=== PATIENT | female | born 1990 | race African-American/Black ===

== ENCOUNTER 2017-01-13 08:23 | Emergency (ER) | payer OTHER ==
[~2017-01-13] VITALS: Ht 157.5 cm; Wt 68.0 kg
--- NOTE | ~2017-01-13 | EKG ---
PATIENT: ERIK KHAN UNIT #: [id number] Ventricular Rate: 81 BPM Atrial Rate: 81 BPM P-R Interval: 198 ms QRS Duration: 88 ms Q-T Interval: 372 ms QTC Calculation(Bezet): 432 ms P [place]: 49 degrees Calculated R [place]: 54 degrees Calculated T [place]: 38 degrees Diagnosis Line: Normal sinus rhythm Diagnosis Line: Nonspecific T wave abnormality Diagnosis Line: Abnormal ECG Diagnosis Line: No previous ECGs available Diagnosis Line: Confirmed by ANY LUNA MD ([id number]) on Diagnosis Line: 01/14/2017 12:33:43 PM INTERPRETING MD: CHERYL WINTERS
--- NOTE | ~2017-01-13 | CT2 ---
[facility] A Service of [facility] RADIOLOGY TEXT RESULTS PATIENT: ERIK KHAN LOCATION: [facility] : 89 UNIT #: [id number] AGE: [address]: Refugio Murphy DO SEX: F ORDER DR: [id number] [facility] [address] [place], [place] [address] [id number] MR#: [id number] Acc #: [id number] NAME: ERIK KHAN : 1990 SEX: F STUDY DATE/TIME: 01/13/2017 11:14 UNIT: [facility] ROOM: STUDY DESCRIPTION: CT Abd and Pelv W Cont Attending Physician: Refugio Murphy D.O. Ordering Physician: Refugio Murphy D.O. MEDICAL IMAGING REPORT This report is preliminary unless electronic signature is present EXAM CT abdomen and pelvis 01/13 INDICATIONS Nausea, abdominal pain and diarrhea that started yesterday. TECHNIQUE Axial images were obtained through the abdomen and pelvis following IV contrast administration. Multiplanar reformats were obtained. This CT exam was performed with one or more of the following radiation dose reduction techniques: automatic exposure control, adjustment of mA and/or kV according to patient size, and iterative reconstruction. COMPARISON STUDIES None. FINDINGS ABDOMEN: Lung bases are clear. Gallbladder surgically absent. Solid abdominal organs are normal. GI tract evaluation is limited without oral contrast. GI tract is grossly normal, however. There is no free fluid. PELVIS: Solid pelvic organs are normal. Urinary bladder is normal. The GI tract, including the appendix, is normal. IMPRESSION 1. No acute findings in the abdomen and pelvis. 2. Normal unopacified GI tract, including the appendix. 3. Cholecystectomy. [facility] A Service [facility] RADIOLOGY TEXT RESULTS PATIENT: ERIK KHAN LOCATION: [facility] : [birth year] UNIT #: [id number] AGE: [address]: Refugio Murphy DO SEX: F ORDER DR: Dictated by... Edi Brooks Jr., SelinaD. THIS IS AN ELECTRONICALLY VERIFIED REPORT Edi Brooks Jr., M.D. at 01/14/2017 6:37 AM GONZALES/freya TD: 01/13/2017 22:39 JOB #: [id number] MEDICAL IMAGING REPORT Page 1 of 1 COPY
[2017-01-13 09:12] LABS: BASOPHIL% 0.2 % (0-2.5); EOSINOPHIL# 0.3 X10e3 (0-0.7); EOSINOPHIL% 8.1 % (0.0-7.0); HEMOGLOBIN 13.8 gm/dL (12.0-16.0); LYMPHOCYTE# 0.8 X10e3 (1.0-3.5); LYMPHOCYTE% 21.4 % (17.0-45.0); MEAN CELL VOLUME 86.2 FL (83-96); MEAN CORPUSCULAR HGB CONC 33.6 g/dL (30-36); MEAN PLATELET VOLUME 8.9 FL (6.5-11.5); MONOCYTE# 0.4 X10e3 (0-1.0); MONOCYTE% 10.8 % (3.0-12.0); NEUTROPHIL# 2.3 X10e3 (1.5-7.1); NEUTROPHIL% 59.5 % (40-75); PLATELET COUNT 198 X10e3 (140-420); RED BLOOD COUNT 4.75 X10e (3.90-5.30); RED CELL DISTRIBUTION WIDTH 13.3 % (11.0-15.5); WHITE BLOOD COUNT 3.8 X10e3 (4.0-10.5)
[2017-01-13 09:20] LABS: DIFF IND NO
[2017-01-13 09:46] LABS: URINE SOURCE CLEAN CATCH
[2017-01-13 09:52] LABS: URINE APPEARANCE CLOUDY; URINE BILIRUBIN NEG (NEG); URINE BLOOD NEG (NEG); URINE COLOR YELLOW; URINE GLUCOSE NEG (NEG); URINE KETONE TRACE (NEG); URINE LEUKOCYTE ESTERASE 1+ (NEG); URINE NITRATE NEG (NEG); URINE PH 5.5 (5-8); URINE PROTEIN 1+ (NEG); URINE SPECIFIC GRAVITY 1.029 (1.003-1.035)
[2017-01-13 09:55] LABS: CULTURE INDICATED? YES; URBCS1 AUWI 0-2 /[HPF] (0-2); URINE SQUAMOUS EPITHELIAL CELL MOD /[HPF]
[2017-01-13 10:05] LABS: ALBUMIN SERUM 4.4 g/dL (3.5-5.0); BILIRUBIN, DIRECT 0.2 mg/dL (0.0-0.2); BILIRUBIN,INDIRECT 0.8 mg/dL (0.0-0.9); BUN/CREATININE RATIO 15.83; CALCIUM SERUM 9.3 mg/dL (8.4-10.2); CREATININE SERUM 1.2 mg/dL (0.6-1.4); GLOM FILT RATE Estimated 62.3 mL/min (>60); POTASSIUM 3.9 mmol/L (3.5-5.1); PROTEIN TOTAL SERUM 8.3 g/dL (6.0-8.3)
[2017-01-13 10:26] LABS: URINE MUCUS PRESENT
[2017-01-13 10:27] LABS: URINE BACTERIA AUWI 1+ (NEGATIVE)
[2017-01-13 13:25] LABS: POC - CKMB <1.0 ng/mL (0.0-7.9); POC - TROPONIN <0.05 ng/mL (<=0.05)
== END 2017-01-13 14:05 | disposition home or self-care (01) ==
LOC: CED 08:23
PROVIDERS: Emergency Medicine
DX: N39.0 Urinary tract infection, site not specified (principal); Z90.49 Acquired absence of other specified parts of digestive tract
CPT/HCPCS: 36415; 74177; 80048; 80076; 81003; 82553; 83605; 83690; 84484; 84703; 85025; 87086; 93005; 96361; 96365; 96372; 96375; 99284; J0500; J0696; J2405; Q9967